=== PATIENT | male | born 1965 | race Caucasian/White ===

== ENCOUNTER 2022-07-16 22:05 | Emergency (ER) | payer OTHER ==
[~2022-07-16] VITALS: Ht 180.3 cm; Wt 83.9 kg
[2022-07-16] MEDS ORDERED: METFORMIN HCL500 MG PO (22:39)
[2022-07-16] MEDS ORDERED: MELOXICAM15 MG PO (23:40)
[2022-07-16] MEDS ORDERED: CYCLOBENZAPRINE10 MG PO (23:40)
--- OUTSIDE RECORDS SUMMARY | 2022-07-16 23:54 | XMS ---
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 Paul has no Care Guidelines for this patient. Alexey VISIT COUNT (12 MO.) 1 JONNY Azevedo TOTAL 1 NOTE: Visits indicate total known visits. ED/C VISIT TRACKING (12 MO.) 07/16/2022 22:07 JONNY Law [place] TYPE: Emergency COMPLAINT: - FLANK PAIN INPATIENT VISIT TRACKING (12 MO.) No inpatient visits to display in this time frame [email or web address]
== END 2022-07-16 23:59 | disposition home or self-care (01) ==
LOC: ED 22:05
DX: S39.011A Strain of muscle, fascia and tendon of abdomen, initial encounter (principal); X58.XXXA Exposure to other specified factors, initial encounter; I25.2 Old myocardial infarction; E11.9 Type 2 diabetes mellitus without complications; Z79.84 Long term (current) use of oral hypoglycemic drugs
CPT/HCPCS: 36415; 74176; 80053; 81001; 85025; 96361; 96374; 96375; 99284-25; J1885; J2405; J7030